=== PATIENT | female | born 1955 | race Hispanic/Latino ===

== ENCOUNTER 2017-10-30 07:44 | Day surgery (SDC) | payer BC ==
[2014-02-18 16:06] VITALS: BMI 20.8
--- NOTE | 2017-10-30 09:04 | CP.SDSHP ---
Same Day Surgery H & P - History Proposed Procedure: Left elbow unlar nerve exploration, possible release/ transposition Pre-Op Diagnosis: Left elbow tardy ulnar nerve palsy - Previous Medical/Surgical History Cardiac: Valvular Heart Disease (mitral valve prolapse with regurgitation) Pain: 4.Moderate Pain Previous Surgical History: Bilateral ulnar nerve transposition, R shoulder arthroscopy - Allergies Allergies: Allergies ciprofloxacin [From Cipro] Allergy (Intermediate, Verified 10/27/17 09:06) SWELLING - Current Medications Current Medications: Inderal - Physical Exam General Appearance: NAD Vital Signs: Vital Signs 10/30/17 08:42 Temperature 55 F L Pulse Rate 20 L Respiratory 18 Rate Blood Pressure 127/77 O2 Sat by Pulse 100 Oximetry Mental Status: Alert & Oriented x3 Neuro: WNL Heart: WNL Lungs: WNL GI: WNL - {Optional Preform as Required} Abdomen: WNL Integument: WNL Ortho: Other (LUE: UN diminished sensation, decreased identification technician strength compared to right, motor intact MN/UN/RN, radial pulse intact) ENT: WNL - Impression Impression: Patient is a 62 y/o female with complaints of LUE numbness/tingling/ weakness along unlar distribution for the last 2 years, progressively worsened over the past year resistant to conservative management. Patient has history of L elbow dislocation 7 years ago and b/l elbow ulnar transposition approximately 4 years ago. Patient was explained Pros/cons/risks/benefits of procedure in detail. She expresses understanding and agrees to proceed with proposed procedure. Pt. Evaluated Today:Candidate for Anesthesia & Procedure: Yes - Date & Time Date: 10/30/17 Time: 09:01 Short Stay Discharge - Short Stay Discharge Admitting Diagnosis/Reason for Visit: TARDY ULNAR NERVE PALSY Disposition: HOME/ ROUTINE
[2017-10-30] MEDS ORDERED: Midazolam 2 MG/2 ML VIAL ONE (10:17)
[2017-10-30] MEDS ORDERED: Propofol 10 mg/ml Inj (20 ML) ONE (10:18)
[2017-10-30] MEDS ORDERED: ceFAZolin IV 1 gm in Dextrose 1 GM/50 ML BAG IVPB ONE (10:23)
[2017-10-30] MEDS ORDERED: ePHEDrine 50 mg/ml Inj ONE (13:18)
[2017-10-30] MEDS ORDERED: EPINEPHrine 1 mg/ml (1:1000) Inj ONE (13:18)
[2017-10-30] MEDS ORDERED: Bacitracin Ointment 30 GM TUBE ONE (13:35)
[2017-10-30] MEDS ORDERED: HYDROmorphone 0.5 mg/0.5 ml ISec IVP PRN (14:11)
[2017-10-30] MEDS ORDERED: Dexamethasone 4 mg/1 ml IVP PRN (14:11)
[2017-10-30] MEDS ORDERED: Lactated Ringer's 1,000 ML IV ONE ×2 (14:15→14:18)
[2017-10-30] MEDS ORDERED: Oxycodone/Acetaminophen 5/325 mg Tab PO PRN (14:18)
[2017-10-30 15:18] VITALS: TEMP 97
[2017-10-30 16:11] VITALS: BP 127/70; PULSE 55; RESP 18; O2SAT 100
--- NOTE | 2017-10-30 16:31 | PCM.SURG1 ---
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 Ulnar neurolysis. release flexor/pronbator muscuture. Excision/partial resection intermuscular septum. applx posterior splint. positoning and use of operating microscope Specimen/Specimens Removed: synvoium/epineurium. scar tissue Estimated Blood Loss: EBL {In ML}: 5 Blood Products Given: N/A Drains Used: No Drains Post-Op Condition: Good Date of Surgery/Procedure: 10/30/17 Time of Surgery/Procedure: 11:35 (time in room/anaesthesia indcution time - 10: 43)
--- NOTE | 2017-11-02 02:49 | OP ---
Copied To: Juan Seo MD Attending MD: Juan Seo MD PROCEDURE DATE: 10/30/2017 LOCATION: [facility]. PREOPERATIVE DIAGNOSIS: Left nerve palsy, recurrent. POSTOPERATIVE DIAGNOSES: Left nerve palsy, recurrent and severe compression, left ulnar nerve. OPERATIVE FINDINGS: Severe scarring in the left ulnar nerve exiting the intramuscular septum through the left elbow proper into the flexor pronator musculature. It should be noted that the patient had prior medial epicondylectomy. OPERATIONS PERFORMED: 1. Ulnar nerve decompression using the operating microscope. 2. Ulnar neurolysis. 3. Release, flexor pronator musculature. 4. Excision and partial resection of intermuscular septum. 5. Application of posterior splint. 6. Positioning and use of the operating microscope. SURGEON: Juan Seo MD BUILDING INSULATION SUPERVISOR: Jamee Abrams, certified registered nursing certified surgical first assistant. SECOND PRICING COORDINATOR FOR THE CLOSING PART OF THE PROCEDURE: Devang Owens PA-C. SPECIMENS REMOVED: Synovium, epineurium, and scar tissue. BLOOD LOSS: 5 mL. BLOOD PRODUCTS GIVEN: None. DRAINS: No drains. POSTOPERATIVE CONDITION: Stable. DATE OF SURGERY: 10/30/2017 INCISION TIME: 11:35 a.m., time in the room 10:43 a.m. OPERATIVE INDICATIONS: Teresa Eagle is a 62-year-old woman well known to my practice who had undergone a prior left ulnar nerve decompression five to six years ago. The patient is an avid golfer and has had increasing numbness and tingling in the ulnar distribution of the hand and some weakness as well. The patient failed conservative course consisting of activity modification and therapy over a period of time. The patient again has stopped playing golf because of this problem. Pros, cons, risks, and benefits of ulnar nerve exploration were discussed. The danger of this procedure was discussed. Possibility of permanent nerve injury was discussed. The EMG examination was reviewed with the patient, which revealed evidence of ulnar nerve compression. Pros, cons, risks, and benefits of surgical approach were discussed. OPERATIVE PROCEDURE: After having obtained informed consent in the above fashion, after having identified site, side, and procedure and a critical pause/time-out, after the satisfactory induction of the anesthetic by Dr. Chatman, the patient identified as Teresa Eagle in supine position with all bony prominences well padded, and the left upper extremity was prepped and free draped in the usual fashion for upper extremity surgery. The tourniquet had been applied but is not yet inflated. After exsanguinating the limb using a 4-inch Esmarch bandage, the tourniquet which had been applied was inflated to 250 mmHg. The operation was performed initially under loupe magnification 2.5 times and then using the operating microscope. The original incision was extended two fingerbreadths proximally and two fingerbreadths distally. The skin incision was carried down through the skin and subcutaneous tissue. An ellipse of skin was removed, skin and subcutaneous tissue. The dissection was carried down now through the subcutaneous tissue being very mindful in the fact that the ulnar nerve was superficial. Stay sutures were employed. The fascia superficial to the flexor pronator mass was elevated. It was noted that the ulnar nerve was identified exiting the intermuscular septum and was extremely scarred in. With this having been accomplished, the dissection was very tedious and began very carefully. Using a combination of the Barba dissecting scissors/tenotomy scissors, the ulnar nerve was identified proximally as it exited the intermuscular septum. The intermuscular septum was identified, and a portion of the intermuscular septum was carefully resected with a knife blade away from the ulnar nerve so as to avoid any injury to the ulnar nerve. Great care was taken. With this having been accomplished, the dissection was carried down to the area of the ulnar groove. The patient had had a prior medial condylectomy. At this point in time, the operating microscope was positioned and was focused. With this having been accomplished, further dissection of the ulnar nerve was accomplished using the tenotomy scissors and the dissecting scissors. With this having been accomplished again under direct vision, the ulnar nerve was released using the Barba dissecting scissors, and great care was taken as the nerve exited the intermuscular septum proximally at the medial aspect of the brachium and then the posterior aspect of the elbow near the ulnar groove. Dissection at this point in time after positioning the operating microscope and focusing the microscope was carried out, dissection carried out to the entry into the flexor pronator musculature. It should be noted that the nerve was extremely compressed. A careful partial ulnar neurolysis was now accomplished from distal to proximal in the area of the ulnar groove and extended proximally to the exit of the nerve from the intermuscular septum. With this having been accomplished, a careful ulnar neurolysis was accomplished. The ulnar nerve was released from proximal to distal and again the central and branches were noted again using the operating microscope. The wound was thoroughly irrigated. At this point in time, the ulnar nerve was completely freed. The decision at this point in time was to elevate some fascia and perform a modified Littler procedure swinging the nerve anteriorly. It was decided against doing that. The ulnar nerve was completely decompressed. The partial medial epicondylectomy had been satisfactorily accomplished prior, so the wound was thoroughly irrigated. Ulnar nerve decompression was accomplished through the entire extent. Careful ulnar neurolysis was accomplished. The portion of the intermuscular septum had been excised. The wound was thoroughly irrigated. The tourniquet was deflated, hemostasis controlled. The medial musculature deep to the nerve was repaired using interrupted Vicryl suture so as to further decrease the chance of entrapment. No blood products were given. No drains. Closure was in layers with interrupted Vicryl and 2-0 Quill for skin. Rj-Russell compression dressing and posterior splint were applied. ADDENDUM: It should be noted that after the ulnar nerve was completely released and the entry into the flexor pronator musculature was carefully dissected again using the operating microscope, the flexor pronator musculature was released from the medial epicondyle so as again to decrease the chances of further entrapment of the nerve. Closure at this point was accomplished after the tourniquet was deflated. Rj-Russell compression dressing and posterior splint were applied. Juan Seo MD
== END 2017-10-30 17:27 | disposition home or self-care (01) ==
LOC: C.SDS 07:44
PROVIDERS: ATTEND Orthopaedic Surgery
DX: G56.22 Lesion of ulnar nerve, left upper limb (principal); I34.1 Nonrheumatic mitral (valve) prolapse
CPT/HCPCS: 64718; 64727; J0171; J0690; J1170; J2001; J2250; J2405; J2704; J3010; J7120